=== PATIENT | female | born 1965 | race Caucasian/White ===

== ENCOUNTER 2024-02-03 09:54 | Emergency (ER) | payer BC ==
[2024-02-03] MEDS ORDERED: predniSONE 20 MG TAB ONE (10:59)
== END 2024-02-03 11:25 | disposition home or self-care (01) ==
LOC: NAV ERS 09:54
DX: M25.512 Pain in left shoulder (principal); R20.2 Paresthesia of skin
CPT/HCPCS: 99283; J7512